=== PATIENT | male | born 1950 | race African-American/Black ===

== ENCOUNTER 2018-12-14 09:00 | Emergency (ER) | payer MEDICARE, MEDICAID ==
[~2018-12-14] VITALS: Ht 165.1 cm; Wt 84.1 kg
[2018-12-14 10:19] LABS: BASO # 0.1 (0.0-0.2); BASO % 0.5 % (0.0-2.0); EOS # 0.8 (0.0-0.7); EOS % 7.4 % (0-4.0); GRAN # 6.5 (1.4-6.5); GRAN % 64.7 % (42.2-75.2); HEMATOCRIT 34.8 % (42.0-52.0); HEMOGLOBIN 11.5 g/dl (13.5-18.0); LYMPH # 1.4 (1.2-3.4); LYMPH % 13.8 % (20.0-51.0); MEAN CELL VOLUME 95 fl (80.0-100.0); MEAN CORPUSCULAR HEMOGLOBIN 32 pg (27.0-31.0); MEAN CORPUSCULAR HGB CONC 33 g/dl (33.0-37.0); MONO # 1.2 (0.1-0.6); MONO % 12.3 % (1.7-9.3); PLATELET COUNT 258 K/mm3 (130-400); RED BLOOD COUNT 3.65 M/mm3 (4.20-5.60); REDCELL DISTRIBUTION WIDTH-CV 13.3 % (11.5-14.5)
[2018-12-14 10:20] LABS: COLLECTION METHOD CLEAN CATCH
[2018-12-14 10:25] LABS: PH 5 (5-8); SQUAMOUS EPITHELIAL None Seen /hpf; URINE APPEARANCE Clear; URINE BACTERIA None Seen /hpf; URINE BILIRUBIN Negative (NEGATIVE); URINE BLOOD 1+ (NEGATIVE); URINE COLOR Colorless; URINE GLUCOSE 3+ (NEGATIVE); URINE KETONE Negative (NEGATIVE); URINE LEUKOCYTE ESTERASE Negative (NEGATIVE); URINE NITRATE Negative (NEGATIVE); URINE PROTEIN(semi-quant) 1+ (NEGATIVE); URINE RBC 0-2 /hpf; URINE UROBILINOGEN Negative (NEGATIVE)
[2018-12-14 10:32] LABS: ALBUMIN 4.1 gm/dL (3.5-5.0); BILIRUBIN,TOTAL 0.3 mg/dL (0.0-1.0); C-REACTIVE PROTEIN 0.8 mg/dL (0.0-0.9); CALCIUM 9.6 mg/dL (8.4-10.2); CREATININE, serum 3.13 (0.66-1.25); POTASSIUM 4.7 mmol/L (3.4-5.0); TOTAL PROTEIN 8.9 gm/dL (6.4-8.2)
[2018-12-14] MEDS ORDERED: NOVOLOG FLEX100 U/ML SQ (11:28)
[2018-12-14] MEDS ORDERED: LANTUS100 U/ML SQ (11:29)
[2018-12-14] MEDS ORDERED: MULTI VITAMINS1 TAB PO (11:29)
[2018-12-14] MEDS ORDERED: CRESTOR5 MG PO (11:30)
[2018-12-14] MEDS ORDERED: LASIX 80MG TABL80 MG PO (11:31)
[2018-12-14] MEDS ORDERED: ALBUTEROL S0.4 MG/ML INH (11:32)
[2018-12-14] MEDS ORDERED: ASPIRIN 81M81 MG/TA2 PO (11:34)
[2018-12-14] MEDS ORDERED: NORVASC 10MG10 MG PO (11:34)
[2018-12-14] MEDS ORDERED: COREG 25MG25 MG/TAB PO (11:35)
[2018-12-14] MEDS ORDERED: 00186-0370-20 INH (11:35)
[2018-12-14] MEDS ORDERED: PLAVIX 75MG TAB75 MG PO (11:35)
[2018-12-14] MEDS ORDERED: TIMOPTIC 0.25%-5 OU (11:36)
[2018-12-14] MEDS ORDERED: NORCO 325 MG-51 TAB PO (11:50)
[2018-12-14] MEDS ORDERED: NEURONTIN100 MG/CAP PO (11:50)
[2018-12-14 13:20] VITALS: BP 149/64; PULSE 65; TEMP 98.7
== END 2018-12-14 13:20 | disposition home or self-care (01) ==
LOC: COL.ER 09:00
PROVIDERS: Emergency Medicine
DX: E11.22 Type 2 diabetes mellitus with diabetic chronic kidney disease (principal); I12.9 Hypertensive chronic kidney disease with stage 1 through stage 4 chronic kidney disease, or unspecified chronic kidney disease; N18.9 Chronic kidney disease, unspecified; J44.9 Chronic obstructive pulmonary disease, unspecified; Z98.890 Other specified postprocedural states; Z86.73 Personal history of transient ischemic attack (TIA), and cerebral infarction without residual deficits; Z79.4 Long term (current) use of insulin; Z79.82 Long term (current) use of aspirin; Z79.02 Long term (current) use of antithrombotics/antiplatelets
CPT/HCPCS: J1815; J7040